=== PATIENT | female | born 1970 | race Caucasian/White ===

== ENCOUNTER 2022-01-15 11:50 | Outpatient (CLI) | payer MEDICARE, SELFPAY ==
--- NOTE | 2022-01-15 12:00 | USCV_ITS ---
Blanca Benjamin Age: 51 Gender: F : 1970 Exam Date: 01/15/2022 12:25 Ordering Phys: Yoanna Maxwell NP Technologist: Martha Hernandez Exam Location[place] [facility] [place] [facility] [place] Indication: RLE swelling HISTORY: rLE swelling. PROCEDURES: Venous duplex imaging was performed in only the right lower extremity. The following venous structures were evaluated: common femoral vein, profunda vein, proximal portion of the greater saphenous vein, superficial femoral vein, and the popliteal vein. In addition, the posterior tibial and peroneal trunk were evaluated. FINDINGS: All veins examined appear free of thrombus. No filling defects on color Doppler flow analysis. Vein flow and caliber vary with respiration. Increase in venous flow with augmentation. All veins appear compressible.. CONCLUSIONS No evidence of right lower extremity DVT. Ernesto Avilez MD (Electronically Signed) Final Date: 15 January 2022 16:53 S
== END 2022-01-15 11:51 | disposition home or self-care (01) ==
PROVIDERS: Family Provider Emergency Medicine; Visit Provider Nurse Practitioner Family
DX: R60.0 Localized edema (principal); M79.661 Pain in right lower leg
CPT/HCPCS: 93971

== ENCOUNTER → 2022-01-24 10:10 | Outpatient (BNVA) | payer MEDICARE, SELFPAY | PROVIDERS: Family Provider Emergency Medicine; Visit Provider Nurse Practitioner Family | DX: E78.5 Hyperlipidemia, unspecified (principal); I10 Essential (primary) hypertension; Z51.81 Encounter for therapeutic drug level monitoring | CPT/HCPCS: 80053; 80061; 80175; 84439; 84443 ==

== ENCOUNTER → 2022-02-01 10:18 | Outpatient (BNVA) | payer MEDICARE, SELFPAY | PROVIDERS: Family Provider Emergency Medicine; PCP Nurse Practitioner Family; Visit Provider Thoracic Surgery (Cardiothoracic Vascular Surgery) | DX: R60.0 Localized edema (principal); I78.1 Nevus, non-neoplastic; M79.661 Pain in right lower leg | CPT/HCPCS: 99202 ==

== ENCOUNTER 2022-02-07 13:49 | Outpatient (CLI) | payer MEDICARE, SELFPAY ==
--- NOTE | 2022-02-07 14:57 | MM_ITS ---
WS: [id number] BILATERAL 3D TOMOSYNTHESIS DIGITAL SCREENING MAMMOGRAPHY WITH CAD CLINICAL INFORMATION: SCREENING HISTORY: Screening mammogram. No current complaints. COMPARISON: June 15, 2020 TECHNIQUE: Bilateral CC and MLO views. FINDINGS: Scattered fibroglandular densities bilaterally. New ovoid focal nodular asymmetric density measuring 1.8 x 1.4 cm central RIGHT breast near the 1:00 position middle depth. Recommend further evaluation w ith ultrasound from the 12 to 3:00 position. Additional asymmetric density upper outer RIGHT breast with additional ovoid density outer LEFT breas t are unchanged. Smaller ovoid nodular density anterior RIGHT breast is unchanged. No other suspiciou s findings. MM/[place] [id number] IMPRESSION: BI-RADS: 0-Incomplete: Need additional imaging evaluation FOLLOW UP: Need Additional Imaging New ovoid focal central RIGHT breast near the 1:00 position middle depth. Recom mend further evaluation with ultrasound from the 12 to 3:00 position.
== END 2022-02-07 13:50 | disposition home or self-care (01) ==
LOC: RAD 13:49
PROVIDERS: PCP Nurse Practitioner Family; Visit Provider Nurse Practitioner Family
DX: Z12.31 Encounter for screening mammogram for malignant neoplasm of breast (principal); J02.9 Acute pharyngitis, unspecified
CPT/HCPCS: 77063; 77067; 87426

== ENCOUNTER 2022-02-13 09:05 | Outpatient (CLI) | payer MEDICARE, SELFPAY ==
--- NOTE | 2022-02-13 09:30 | USCV_ITS ---
Blanca Benjamin Age: 51 Gender: F : 1970 Exam Date: 02/13/2022 09:32 Ordering Phys: Jann More MD (Andy) ([email or web address]) Technologist: Braulio Rocha Exam Location: [facility] – [place] Indication: HISTORY: PROCEDURES: Bilateral duplex Venous Insufficiency study of the Deep and Superficial systems was carried out according to normal protocol with the patient in supine positon for deep system and dependent position for the superficial system. FINDINGS: All deep veins demonstrated compressibility without evidence of intraluminal thrombus or increased echogenicity. Spectral analysis of Doppler signals demonstrates normal response to compression maneuvers indicating patency without obstruction. Reflux determinations were made with the patient in the dependent position, the weight being on the contralateral leg. Vein measurements and reflux times are listed below were applicable. No notable reflux was seen at this time. The veins were found to be easily compressible with spontaneous blood flow. Non pulsatile flow pattern. CONCLUSIONS No evidence of DVT in the above-mentioned identifiable veins. Mildly dilated superficial veins on the right side. Normal caliber veins on the left side. No significant venous reflux either in the superficial or in the deep veins of the lower extremities Dr Michelle Carmona MD [facility] (Electronically Signed) Final Date: 17 February 2022 15:17 S
== END 2022-02-13 09:06 | disposition home or self-care (01) ==
PROVIDERS: PCP Nurse Practitioner Family; Visit Provider Thoracic Surgery (Cardiothoracic Vascular Surgery)
DX: I78.1 Nevus, non-neoplastic (principal); M79.661 Pain in right lower leg; R60.0 Localized edema
CPT/HCPCS: 93970

== ENCOUNTER 2022-03-21 14:40 | Outpatient (CLI) | payer MEDICARE, SELFPAY ==
--- NOTE | 2022-03-21 15:01 | US_ITS ---
WS: [id number] ULTRASOUND BREAST RIGHT TECHNIQUE: Ultrasound right breast focused area of concern. CLINICAL INFORMATION: N63.0 - Unspecified lump in unspecified breast COMPARISON: February 07, 2022 FINDINGS: Ultrasound RIGHT breast 12 to 3:00 position. Hypoechoic lobulated lesion at the 12:00 position measur ing 8.2 x 14 x 6 mm. This appears to represent a cluster of microcysts with some internal debris. Sma ll amount of through-transmission. Recommend 6 month follow-up to confirm stability. No other suspic ious findings. US/US breast RT limited* [id number] IMPRESSION: BI-RADS 3 probably benign Follow up: Recommend 6 month follow-up RIGHT breast diagnostic mammography and ultrasound to confirm stability
== END 2022-03-21 14:41 | disposition home or self-care (01) ==
PROVIDERS: PCP Nurse Practitioner Family; Visit Provider Nurse Practitioner Family
DX: N63.15 Unspecified lump in the right breast, overlapping quadrants (principal)
CPT/HCPCS: 76642

== ENCOUNTER → 2022-04-27 14:55 | Outpatient (BNVA) | payer MEDICARE, SELFPAY | PROVIDERS: PCP Nurse Practitioner Family; Visit Provider Nurse Practitioner Family | DX: R30.0 Dysuria (principal); G31.84 Mild cognitive impairment of uncertain or unknown etiology; F31.62 Bipolar disorder, current episode mixed, moderate; Z68.39 Body mass index [BMI] 39.0-39.9, adult | CPT/HCPCS: 80053; 81000; 82306; 82607; 84443; 85025 ==

== ENCOUNTER 2022-05-10 14:56 | Outpatient (CLI) | payer MEDICARE, SELFPAY ==
--- NOTE | 2022-05-10 15:30 | CT_ITS ---
WS: [id number] CT HEAD TECHNIQUE: Noncontrast CT of the head obtained from the skullbase to the vertex. CLINICAL INFORMATION: G31.84 - Mild cognitive impairment of uncertain or unknow... COMPARISON: None. DLP: 1114.[address] scans at [place] use at least one of these dose optimization techniques: automated e xposure control; mA and/or kV adjustment per patient size (includes targeted exams where dose is matc hed to clinical indication); or iterative reconstruction. FINDINGS: No evidence of intracranial hemorrhage or mass effect. Ventricular system and basal cisterns are figueroa nt. Mild small vessel changes with mild parenchymal volume loss. Tiny chronic lacunar infarct RIGHT c audate. No extra-axial fluid collections. No evidence of mass or mass effect. Normal posterior nasoph arynx. Paranasal sinuses and mastoid air cells are well aerated. .Normal visualized soft tissues. CT/CT head wo con* [id number] IMPRESSION: 1. No evidence of intracranial hemorrhage or mass effect. 2. Mild small vessel changes. Mild parenchymal volume loss. 3. Tiny chronic lacunar infarct RIGHT caudate. 4. No acute intracranial findings.
== END 2022-05-10 14:57 | disposition home or self-care (01) ==
PROVIDERS: PCP Nurse Practitioner Family; Visit Provider Nurse Practitioner Family
DX: R41.0 Disorientation, unspecified (principal); I63.81 Other cerebral infarction due to occlusion or stenosis of small artery
CPT/HCPCS: 70450

== ENCOUNTER → 2022-07-11 09:46 | Outpatient (BNVA) | payer MEDICARE, SELFPAY | PROVIDERS: PCP Nurse Practitioner Family; Visit Provider Nurse Practitioner Family | DX: R05.9 Cough, unspecified (principal); J32.9 Chronic sinusitis, unspecified; B96.89 Other specified bacterial agents as the cause of diseases classified elsewhere | CPT/HCPCS: 87400; 87426 ==

== ENCOUNTER → 2022-07-25 09:43 | Outpatient (BNVA) | payer MEDICARE, SELFPAY | PROVIDERS: PCP Nurse Practitioner Family; Visit Provider Nurse Practitioner Family | DX: I10 Essential (primary) hypertension (principal); E78.5 Hyperlipidemia, unspecified; F41.9 Anxiety disorder, unspecified; Z68.38 Body mass index [BMI] 38.0-38.9, adult | CPT/HCPCS: 80053; 80061 ==

== ENCOUNTER 2022-09-20 08:50 | Outpatient (CLI) | payer MEDICARE, SELFPAY ==
--- NOTE | 2022-09-20 08:58 | MM_ITS ---
WS: [id number] RIGHT 3D TOMOSYNTHESIS DIGITAL MAMMOGRAPHY WITH CAD CLINICAL INFORMATION: 6MFU COMPARISON: February 07, 2022 TECHNIQUE: 3 views of the right breast were obtained. FINDINGS: Scattered fibroglandular densities of the right breast. Again seen is the focal ovoid nodular density central RIGHT breast at the 1:00 position middle depth. This is unchanged in size compared to previo us measuring approximately 1.8 cm. Ultrasound described below. Additional asymmetric density subareolar RIGHT breast and ovoid nodular density anterior RIGHT breast are unchanged. ULTRASOUND BREAST RIGHT TECHNIQUE: Ultrasound right breast focused area of concern. CLINICAL INFORMATION: 6MFU COMPARISON: 03/21/22 FINDINGS: Ultrasound RIGHT breast the 12:00 position 2 cm from the nipple. Again seen is the cluster of microcy sts today measuring 1.8 x 0.8 x 1.0 CM. This is slightly increased in size compared to previous proba dimple benign. Recommend additional ultrasound evaluation at the time of annual screening 6 months. MM/[place] [id number] IMPRESSION: BI-RADS: 3-Probably Benign FOLLOW UP: 6 Month Follow-up Recommend additional ultrasound evaluation RIGHT breast at the time of annual s creening 6 months.
== END 2022-09-20 08:51 | disposition home or self-care (01) ==
LOC: RAD 08:53
PROVIDERS: PCP Nurse Practitioner Family; Visit Provider Nurse Practitioner Family
DX: R92.8 Other abnormal and inconclusive findings on diagnostic imaging of breast (principal); N60.01 Solitary cyst of right breast
CPT/HCPCS: 76642; 77061; G0279

== ENCOUNTER → 2022-12-20 13:36 | Outpatient (BNVA) | payer MEDICARE, SELFPAY | PROVIDERS: PCP Nurse Practitioner Family; Visit Provider Nurse Practitioner Family | DX: Z76.89 Persons encountering health services in other specified circumstances (principal); R21 Rash and other nonspecific skin eruption | CPT/HCPCS: 88304 ==

== ENCOUNTER → 2022-12-31 17:07 | Outpatient (BNVA) | payer MEDICARE, SELFPAY | PROVIDERS: PCP Nurse Practitioner Family; Visit Provider Family Medicine | DX: M31.9 Necrotizing vasculopathy, unspecified (principal); Z48.02 Encounter for removal of sutures | CPT/HCPCS: 80053; 86160; 86162; 86235; 86255; 86376; 86618; 86666; 86757 ==

== ENCOUNTER → 2023-01-02 09:35 | Outpatient (BNVA) | payer MEDICARE, SELFPAY | PROVIDERS: PCP Nurse Practitioner Family; Visit Provider Nurse Practitioner Women's Health | DX: N91.2 Amenorrhea, unspecified (principal); Z12.4 Encounter for screening for malignant neoplasm of cervix | CPT/HCPCS: 82670; 83001; 87624 ==

== ENCOUNTER → 2023-01-10 11:00 | Outpatient (BNVA) | payer MEDICARE, SELFPAY | PROVIDERS: PCP Nurse Practitioner Family; Visit Provider Nurse Practitioner Women's Health | DX: N91.2 Amenorrhea, unspecified (principal) | CPT/HCPCS: 76830 ==

== ENCOUNTER → 2023-02-04 09:06 | Outpatient (BNVA) | payer MEDICARE, SELFPAY | PROVIDERS: PCP Nurse Practitioner Family; Visit Provider Nurse Practitioner Women's Health | DX: N91.0 Primary amenorrhea (principal); N91.2 Amenorrhea, unspecified; F31.62 Bipolar disorder, current episode mixed, moderate; Z79.899 Other long term (current) drug therapy | CPT/HCPCS: 82670; 83001; 84146; 84439; 84443 ==

== ENCOUNTER 2023-02-07 11:17 | Emergency (ER) | payer MEDICARE, SELFPAY ==
--- NOTE | 2023-02-07 11:20 | XR_ITS ---
WS: [id number] Exam: XR shoulder RT min 2V* [id number] Date/Time of Exam: 02/07/2023 11:22 AM Reason For Exam: injury No fracture or dislocation noted. Mild DJD at the AC joint. Normal soft tissues. IMPRESSION: 1. Mild AC joint DJD. No other significant finding.
[2023-02-07 12:09] VITALS: BP 145/85; PULSE 62; RESP 17; TEMP 36.9; O2SAT 99
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
[2023-02-07 13:13] VITALS: BP 152/91; PULSE 62; O2SAT 97
== END 2023-02-07 13:18 | disposition home or self-care (01) ==
PROVIDERS: Emergency Provider Physician Assistant; PCP Nurse Practitioner Family
DX: S49.91XA Unspecified injury of right shoulder and upper arm, initial encounter (principal); I10 Essential (primary) hypertension; E78.5 Hyperlipidemia, unspecified; V89.2XXA Person injured in unspecified motor-vehicle accident, traffic, initial encounter
CPT/HCPCS: 73030; 99283

== ENCOUNTER → 2023-03-21 15:31 | Outpatient (BNVA) | payer MEDICARE, SELFPAY | PROVIDERS: PCP Nurse Practitioner Family; Visit Provider Nurse Practitioner Family | DX: L85.3 Xerosis cutis (principal); B35.4 Tinea corporis; D22.62 Melanocytic nevi of left upper limb, including shoulder; L81.4 Other melanin hyperpigmentation | CPT/HCPCS: 99213 ==

== ENCOUNTER → 2023-04-02 09:27 | Outpatient (BNVA) | payer MEDICARE, SELFPAY | PROVIDERS: PCP Nurse Practitioner Family; Visit Provider Nurse Practitioner Family | DX: B67 Echinococcosis (principal) | CPT/HCPCS: 87177; 87209 ==

== ENCOUNTER 2023-06-06 09:05 | Outpatient (CLI) | payer MEDICARE, SELFPAY ==
--- NOTE | 2023-06-06 09:14 | MM_ITS ---
WS: [id number] BILATERAL 3D TOMOSYNTHESIS DIGITAL DIAGNOSTIC MAMMOGRAPHY WITH CAD CLINICAL INFORMATION: N63.0 - Unspecified lump in unspecified breast HISTORY: 6-month follow-up COMPARISON: 02/07/2022 TECHNIQUE: Bilateral CC, MLO, and ML views. FINDINGS: Scattered fibroglandular densities bilaterally. Parenchymal pattern is similar to previous. Stable fo hubert ovoid nodular density central RIGHT breast at the 1 o'clock position middle depth. This is stable compared to previous. Ultrasound is pending. LEFT breast is unchanged. ULTRASOUND BREAST RIGHT TECHNIQUE: Ultrasound right breast focused area of concern. CLINICAL INFORMATION: N63.0 - Unspecified lump in unspecified breast COMPARISON: 09/20/2022 and 03/21/2022 FINDINGS: Ultrasound RIGHT breast area of concern 12 o'clock position 2 cm from the nipple. Again seen is the c luster of microcysts measuring 0.8 x 1.0 x 0.4 cm decreased in size compared to previous. This has a benign appearance and recommend return to annual screening mammography. IMPRESSION: MM/[place] [id number] BI-RADS: 2-Benign FOLLOW UP: 1 Year Follow-up Recommend return to annual screening mammography.
--- NOTE | 2023-06-06 10:00 | US_ITS ---
WS: [id number] BILATERAL 3D TOMOSYNTHESIS DIGITAL DIAGNOSTIC MAMMOGRAPHY WITH CAD CLINICAL INFORMATION: N63.0 - Unspecified lump in unspecified breast HISTORY: 6-month follow-up COMPARISON: 02/07/2022 TECHNIQUE: Bilateral CC, MLO, and ML views. FINDINGS: Scattered fibroglandular densities bilaterally. Parenchymal pattern is similar to previous. Stable fo hubert ovoid nodular density central RIGHT breast at the 1 o'clock position middle depth. This is stable compared to previous. Ultrasound is pending. LEFT breast is unchanged. ULTRASOUND BREAST RIGHT TECHNIQUE: Ultrasound right breast focused area of concern. CLINICAL INFORMATION: N63.0 - Unspecified lump in unspecified breast COMPARISON: 09/20/2022 and 03/21/2022 FINDINGS: Ultrasound RIGHT breast area of concern 12 o'clock position 2 cm from the nipple. Again seen is the c luster of microcysts measuring 0.8 x 1.0 x 0.4 cm decreased in size compared to previous. This has a benign appearance and recommend return to annual screening mammography. IMPRESSION: US/US breast RT limited* [id number] BI-RADS: 2-Benign FOLLOW UP: 1 Year Follow-up Recommend return to annual screening mammography.
== END 2023-06-06 09:06 | disposition home or self-care (01) ==
LOC: RAD 09:07
PROVIDERS: PCP Nurse Practitioner Family; Visit Provider Nurse Practitioner Family
DX: N63.0 Unspecified lump in unspecified breast (principal); N60.01 Solitary cyst of right breast
CPT/HCPCS: 76642; 77062; G0279

== ENCOUNTER 2023-07-23 12:06 | Day surgery (SDC) | payer MEDICARE, SELFPAY ==
[2023-07-18 10:40] LABS: Add Urine Microscopic? NO; Charge for UA Resulting for Rev
[2023-07-18 10:42] LABS: Basophils # 0.1 10^3/uL (0.0-0.1); Basophils % 0.9 %; Eosinophils # 0.2 10^3/uL (0.0-0.8); Eosinophils % 3.4 %; Hematocrit 41.4 % (36-47); Lymphocytes # 2.3 10^3/uL (0.8-4.8); Lymphocytes % 34.9 %; Mean Corpuscular HGB Conc 32.9 g/dL (30-55); Mean Corpuscular Hemoglobin 27.9 pg (27-33); Mean Platelet Volume 9.9 fL (7.4-10.4); Monocytes # 0.5 10^3/uL (0.2-0.9); Monocytes % 8.1 %; Neutrophils # 3.43 10^3/uL (1.8-7.7); Neutrophils % 52.2 %; Nucleated Red Blood Cells % 0 %; Platelet Count 290 10^3/cmm (157-399); Red Blood Count 4.87 10^6/uL (3.85-5.65); White Blood Count 6.56 10^3/uL (3.29-11.43)
--- NOTE | 2023-07-18 10:46 | P.ANESASSM_ITS ---
Pre-Anesthetic Assessment Height/Weight: Height 1.68 m Operation Date: 07/23/23 09:00 Proposed Procedures p Hyteroscopy, dilation and curettage with Myosure [id number],74403,R93.89(Not Applicable) - Brendan Langston MD s Dilation And Curettage (D&C)(Not Applicable) - Brendan Langston MD Familial anesthetic complications: PONV Social No alcohol and No tobacco Exam alert, oriented x 3, clear to auscultation bilaterally and regular rate & rhythm Airway Mallampati: Class I Dentition: full Pulmonary Asthma (infrequent rescue inhaler use) CV/HEM Hypertension None reported Hepatic None reported GI Hiatal Hernia increased acid reflux over the past month Musc/skel Lower Back Pain Neuropsych None reported Anesthetic Plan ASA status: 2 Anesthesia: General Risk of > 500 ml blood loss (7ml/kg in children): No Medications/Allergies Home Medications Medication Instructions Recorded Confirmed Last Taken Type albuterol sulfate 90 mcg/actuation 2 puff inhalation Q6H PRN 02/05/22 07/18/23 2 Weeks Ago Rx aerosol inhaler shortness of breath or wheezing ~07/04/23 #8.5 grams fexofenadine 180 mg tablet 180 mg PO DAILY 07/31/22 07/18/23 1 Day Ago History ~07/17/23 fluticasone propionate 50 1 spray intranasal Q12H PRN 07/31/22 07/18/23 Unknown History mcg/actuation nasal Allergy Symptoms spray,suspension (Allergy Relief (fluticasone)) calcium carbonate 500 mg-vitamin 1 tab PO DAILY 12/31/22 07/18/23 1 Day Ago History D3 10 mcg (400 unit) tablet ~07/17/23 (Calcium 500 With D) lorazepam 0.5 mg tablet (Ativan) 0.5 mg PO TID PRN anxiety #90 tabs 03/28/23 07/18/23 1 Day Ago Rx ~07/17/23 potassium gluconate 595 mg (99 mg) 595 mg PO DAILY 03/28/23 07/18/23 1 Day Ago History tablet ~07/17/23 rizatriptan 10 mg tablet See Rx Instructions .Route 04/29/23 07/18/23 2 Days Ago Rx .COMPLEX #20 tabs ~07/16/23 metoprolol succinate 50 mg 50 mg PO DAILY #90 tabs 12/20/23 02/22/24 1 Day Ago Rx tablet,extended release 24 hr ~07/17/23 escitalopram oxalate 20 mg tablet 20 mg PO DAILY #90 tabs 05/29/23 07/18/23 1 Day Ago Rx (Lexapro) ~07/17/23 lamotrigine 200 mg tablet 200 mg PO BID 30 days #60 tabs 05/29/23 07/18/23 1 Day Ago Rx ~07/17/23 lumateperone 42 mg capsule 42 mg PO DAILY #30 caps 05/29/23 07/18/23 1 Day Ago Rx (Caplyta) ~07/17/23 bkckxud-rxpavsgkxszpa-ylyfwwbe 250 2 tab PO Q6H PRN Migraine Headache 07/18/23 07/18/23 1 Day Ago History mg-250 mg-65 mg tablet (Excedrin ~07/17/23 Migraine) famotidine 10 mg tablet 10 mg PO BID PRN Acid Reflux 07/18/23 07/18/23 07/18/23 History ibuprofen 200 mg capsule 400 mg PO Q6H PRN PAIN MOD 07/18/23 07/18/23 Unknown History Allergies Allergy/AdvReac Type Severity Reaction Status Date / Time No Known Allergies Allergy Verified 07/18/23 09:59 PFSH Anesthesia Medical History No pertinent past medical history neghx: dm,thyroid,dvt/pe PCP: [facility] Office Benign essential HTN Anxiety Bipolar mixed affective disorder, moderate PTSD (post-traumatic stress disorder) Dyslipidemia Migraines Hiatal hernia Asthma Psychiatric care Surgical History History of lumbar surgery L4-L5 fusion History of endometrial ablation performed in her 30's [address] [facility] in [place] for AUB. History of shoulder surgery left History of cholecystectomy Family History Other Chronic kidney disease (CKD) Hyperlipidemia Hypertension Psychiatric illness Denies family history of Colon cancer Ovarian cancer Prostate cancer Diabetes CAD (coronary artery disease) Clotting disorder Dementia Heart disease Breast cancer Suicide Anesthesia complication Bleeding disorder Family history of premature coronary artery disease Lung disease Uterine cancer Thyroid disease Stroke Social History Smoking and tobacco/nicotine status: never used tobacco/nicotine Alcohol intake: never Data Anesthesia 07/18/23 10:35 07/18/23 10:35 Short CBC 07/18/23 Range/Units 10:35 WBC 6.56 (3.29-11.43) 10^3/uL Hgb 13.60 (11.27-16.99) g/dL Hct 41.4 (36-47) % MCV 85.0 (85-98) fl Plt Count 290 (157-399) 10^3/cmm Neut % (Auto) 52.2 % Neut # (Auto) 3.43 (1.8-7.7) 10^3/uL Cardiac Studies: 2 No Data to Display
[2023-07-18 10:51] LABS: Urine Appearance Clear (CLEAR); Urine Color Yellow (Yellow); pH Urine 6 (5-7)
[2023-07-18 10:52] LABS: Bilirubin Urine 1+ (Negative); Blood Urine Neg (Negative); Glucose Urine UA Norm (Normal); Ketones Urine Negative (Negative); Leukocyte Esterase Urine Negative (Negative); Nitrate Urine Negative (Negative); Protein Urine Neg (Negative); Urobilinogen Urine 1 mg/dL (Negative)
[2023-07-18 11:12] LABS: Alanine Aminotransferase 18 U/L (0-33); Albumin Level 4.1 g/dL (3.5-5.2); Alkaline Phosphatase 151 U/L (35-105); Anion Gap 15.4 (5-19); Aspartate Amino Transferase 18 U/L (0-32); Blood Urea Nitrogen 13 mg/dL (6-20); Calcium 9.8 mg/dL (8.5-10.5); Carbon Dioxide 26 mmol/L (22-29); Chloride 104 mmol/L (98-107); Globulin 2.3 g/dL (1.3-4.6); Glomerular Filtration Rate 87.2 mL/min (90-130); Glucose 78 mg/dL (65-115); Osmolality Calculated 291 mOsm/kg (285-295); Potassium 4.4 mmol/L (3.5-5.1); Sodium 141 mmol/L (136-145); Total Bilirubin 0.2 mg/dL (0.15-1.2); Total Protein 6.4 g/dL (6.6-8.7)
[2023-07-23] VITALS (9 sets, daily range): BP systolic 130–151; BP diastolic 64–81; PULSE 62–72; RESP 16–17; TEMP 36.1–36.7; O2SAT 92–99
--- NOTE | 2023-07-23 12:32 | P.ANESUD_ITS ---
Pre-Anesthetic Update Pre-Anesthetic Assessment: Date of Surgery/Procedure: 07/23/23 Preop Paulina gnosis: Thickened endometrium, Proposed Procedure: Operation Date: 07/23/23 14:10 Proposed Procedures p Hyteroscopy, dilation and curettage with Myosure 04227,27247,R93.89(Not Applicable) - Brendan Langston MD s Dilation And Curettage (D&C)(Not Applicable) - Brendan Langston MD Any changes to Pre-Anesthetic Assessment?: No Last Intake: Intake Last Liquid Date 07/22/23 Last Liquid Time 20:00 Last Solid Date 07/22/23 Last Solid Time 20:00 Vitals: Oxygen Delivery Me thod Room Air 07/23/23 12:25 Exam: Pre-Anes Outpt Exam: alert and oriented x 3 Cardiac Studies: No Data to Display
[2023-07-23] MEDS: sodium chloride 0.9% 1,000 ML 30 ML IV (12:40)
[2023-07-23] MEDS: midazolam 1 mg/mL INJ 2 mL 2 MG IVP (12:48)
--- NOTE | 2023-07-23 15:23 | W.PM.OPSUD ---
Surgery/Procedure H&P Update DATE OF PROCEDURE: July 23, 2023 DATE H&P PERFORMED: 07/17/23 H&P UPDATE INFORMATION: I have reviewed H&P completed within last 30 days, I have examined patient prior to procedure and No changes to prior documentation PREOP DIAGNOSIS: Thickened endometrium, PLANNED PROCEDURE: Operation Date: 07/23/23 14:10 Proposed Procedures p Hyteroscopy, dilation and curettage with Myosure [id number],89213,R93.89(Not Applicable) - Brendan Langston MD s Dilation And Curettage (D&C)(Not Applicable) - Brendan Langston MD
[2023-07-23] MEDS: ceFAZolin 2,000 MG in sodium chloride 0.9% (plus) 50 ML 100 MG IV (15:24)
--- NOTE | 2023-07-23 16:03 | PM.OP ---
Operative Report Date of procedure: July 23, 2023 Pre-op diagnosis: Thickened endometrium Post-op diagnosis: same Post-op diagnosis: Atrophic endometrium Procedure done: Hysteroscopy with dilation and curettage via MyoSure Specimens removed/disposition: Endometrial curettings Surgeon: Brendan Langston MD Estimated blood loss (mL): 10 Findings: Atrophic endometrium Intrauterine adhesions Condition: stable Disposition: PACU Procedure: After informed consent, the risks included but were not limited to bleeding, infection, injury to internal organs. The patient was counseled on a possible laparotomy and on the potential need for hysterectomy. The patient expressed understanding of the risks involved, all questions were answered, and the patient consented to the procedure. The patient was taken to the operating room where general anesthesia was administered. She was placed in the dorsal lithotomy position and prepped and draped in sterile fashion. A time out procedure was performed. The patient was examined under anesthesia and found to have a normal uterus with normal adnexa. A sterile weight speculum was placed in the vagina. The uterus was then gently sounded to 7 cm, and the cervix was dilated. The 0 degrees MyoSure hysteroscope was advanced gently to the uterine fundus while visualizing the monitor. Survey of the uterine cavity showed: Pedicle of the pedunculated myoma on the right lateral wall, the fundus shows atrophic endometrium; left ostium was visualized, and lateral wall with atrophic endometrium; right ostium visualized, and lateral wall with atrophic endometrium; anterior and posterior arguelles are with atrophic endometrium; endocervical canal is normal. The MyoSure device was advanced and the direct visualization the endometrium was morcellated without complication. At the end of morcellation the fluid deficit was 300 mL and was estimated at approximately 200 mL were on the floor. There was minimal bleeding noted and the tenaculum removed with goad hemostasis noted. The patient tolerated the procedure well. The patient was taken to the recovery area in stable condition.
--- NOTE | 2023-07-24 06:20 | ANE.PACU2 ---
Inpatient post-anesthesia follow up: Airway intact: Yes Vital signs: Temperature 98 F Pulse Rate 62 Respiratory Rate 17 Blood Pressure 133/81 Pulse Oximetry 96 Oxygen Delivery Me thod Room Air Oxygen Flow Rate 6 Fraction of Inspir ed Oxygen Hydration adequate: Yes Nausea and vomiting: No Pain level: 2 Mental status: Baseline
== END 2023-07-23 17:27 | disposition home or self-care (01) ==
PROVIDERS: PCP Nurse Practitioner Family; Visit Provider Obstetrics & Gynecology
PROC: 0UDB8ZZ Extraction of Endometrium, Via Natural or Artificial Opening Endoscopic (ICD-10-PCS; CPT 58558; principal; 2023-07-23 14:10)
PROC: (CPT 58120; 2023-07-23 14:10)
DX: R93.89 Abnormal findings on diagnostic imaging of other specified body structures (principal); I10 Essential (primary) hypertension; E78.5 Hyperlipidemia, unspecified
CPT/HCPCS: 58558; 36415; 80053; 81003; 85025; 86850; 86900; 88305; J0330; J0690; J2250; J2704; J3010; J3490; J7030

== ENCOUNTER → 2023-08-30 09:40 | Outpatient (BNVA) | payer MEDICARE, SELFPAY | PROVIDERS: PCP Nurse Practitioner Family; Visit Provider Nurse Practitioner Family | DX: J45.909 Unspecified asthma, uncomplicated (principal); I10 Essential (primary) hypertension; Z98.890 Other specified postprocedural states; K21.9 Gastro-esophageal reflux disease without esophagitis | CPT/HCPCS: 80053; 80061 ==

== ENCOUNTER 2023-10-22 09:36 | Outpatient (CLI) | payer SELFPAY ==
--- NOTE | 2023-10-22 11:24 | XR_ITS ---
WS: [id number] Exam: XR cervical spine 3V* [id number] Date/Time of Exam: 10/22/2023 11:24 AM Reason For Exam: M54.2 - Cervicalgia No acute fracture or dislocation. There is straightening and reversal of the normal cervical C curve. The odontoid is intact. Paraspinal soft tissues appear normal. XR/XR cervical spine 3V* [id number] IMPRESSION: 1. No fracture or malalignment. 2. Straightening and slight reversal of the normal cervical C curve.
== END 2023-10-22 09:37 | disposition home or self-care (01) ==
LOC: RAD 09:39
PROVIDERS: PCP Nurse Practitioner Family; Visit Provider Nurse Practitioner Family
DX: M54.2 Cervicalgia (principal); G89.29 Other chronic pain; M53.80 Other specified dorsopathies, site unspecified
CPT/HCPCS: 72040

== ENCOUNTER 2024-06-15 09:07 | Outpatient (CLI) | payer MEDICARE, SELFPAY ==
--- NOTE | 2024-06-15 09:17 | XRR_ITS ---
PROCEDURE INFORMATION: Exam: XR Lumbosacral Spine Exam date and time: 06/15/2024 9:27 AM Age: 53 years old Clinical indication: Low back pain; Prior surgery; Surgery date: 6+ months; Surgery type: --lumbar fusion; Additional info: S39.012a - strain of muscle, fascia and tendon of lower b. . . TECHNIQUE: Imaging protocol: Radiologic exam of the lumbosacral spine. Views: 2 or 3 views. COMPARISON: No relevant prior studies available. FINDINGS: Bones/joints: There is normal anatomic alignment of the lumbosacral spine. No evidence of a fracture or destructive bone lesion. There is a posterior bipedicular fusion at L4-L5. There is moderate to severe degenerative disc space narrowing at L5-S1. There are degenerative facet hypertrophic changes at L5-S1. The sacrum is intact. Soft tissues: Unremarkable. Organs: Cholecystectomy. XR/XR lumbar spine 2-3V* [id number] IMPRESSION: 1. No radiographic evidence of an acute lumbosacral abnormality with stable posterior L4-L5 fusion. 2. Moderate to severe degenerative disc disease at L5-S1.
[2024-06-15 10:09] LABS: Folate Level 16.1 ng/mL (4.8-37.3)
[2024-06-15 10:11] LABS: 25 Hydroxy Vitamin D 30 ng/mL (30-100); Alanine Aminotransferase 20 U/L (0-33); Albumin Level 4.5 g/dL (3.5-5.2); Alkaline Phosphatase 152 U/L (35-105); Anion Gap 16.8 (5-19); Aspartate Amino Transferase 15 U/L (0-32); Blood Urea Nitrogen 19 mg/dL (6-20); Calcium 10.2 mg/dL (8.5-10.5); Carbon Dioxide 28 mmol/L (22-29); Chloride 99 mmol/L (98-107); Chol HDL Ratio 5.05 mg/dL (0.0-4.40); Cholesterol 217 mg/dL (0-200); Globulin 3.2 g/dL (1.3-4.6); Glomerular Filtration Rate 74.7 mL/min (90-130); Glucose 121 mg/dL (65-115); HDL Cholesterol 43 mg/dL (60-100); LDL Cholesterol Calculated 127 mg/dL (50-129); LDL HDL Ratio 2.95 RATIO (0.00-3.22); Osmolality Calculated 294 mOsm/kg (285-295); Potassium 3.8 mmol/L (3.5-5.1); Sodium 140 mmol/L (136-145); Thyroid Stimulating Hormone 1.24 uIU/mL (0.27-4.20); Total Bilirubin 0.2 mg/dL (0.15-1.2); Total Protein 7.7 g/dL (6.6-8.7); Triglycerides 234 mg/dL (0-150); Vitamin B12 749 pg/mL (232-1245)
== END 2024-06-15 09:08 | disposition home or self-care (01) ==
LOC: RAD 09:13
PROVIDERS: PCP Family Medicine; Visit Provider Family Medicine
DX: M51.379 Other intervertebral disc degeneration, lumbosacral region without mention of lumbar back pain or lower extremity pain (principal); M47.897 Other spondylosis, lumbosacral region; S39.012A Strain of muscle, fascia and tendon of lower back, initial encounter; Z76.89 Persons encountering health services in other specified circumstances; I10 Essential (primary) hypertension; E78.5 Hyperlipidemia, unspecified; R20.0 Anesthesia of skin; R79.89 Other specified abnormal findings of blood chemistry; E55.9 Vitamin D deficiency, unspecified; F31.62 Bipolar disorder, current episode mixed, moderate; Z98.1 Arthrodesis status; Z90.49 Acquired absence of other specified parts of digestive tract
CPT/HCPCS: 36415; 72100; 80053; 80061; 82306; 82607; 82746; 84443

== ENCOUNTER 2024-07-17 09:50 | Outpatient (CLI) | payer MEDICARE, SELFPAY ==
--- NOTE | 2024-07-17 09:54 | MM_ITS ---
WS: [id number] BILATERAL SCREENING DIGITAL TOMOSYNTHESIS MAMMOGRAM WITH CAD HISTORY: SCREENING COMPARISON: 06/15/2020, 02/07/2022, 09/20/2022, 06/06/2023 Bilateral CC and MLO views with tomosynthesis and synthetic mammography submitted. Computer aided detection analyzed. Breast composition: There are scattered areas of fibroglandular density. No suspicious masses, microcalcifications or architectural distortion. Patient has known bilateral breast masses which have been previously described. Mass in the inferior lateral RIGHT breast at a middle depth measures 1.0 x 1.6 x 1.2 cm and has been previously described and visualized by ultrasound. There is an additional mass in the central LEFT breast towards the upper outer quadrant measuring 0.7 x 1.2 x 1.0 cm. No new mass. There are a few benign scattered calcifications. MM/MM scr tomosynthesis [id number] IMPRESSION: BI-RADS: 2 - Benign. FOLLOW UP: 1 Year Follow-up
== END 2024-07-17 09:51 | disposition home or self-care (01) ==
PROVIDERS: PCP Family Medicine; Visit Provider Family Medicine
DX: Z12.31 Encounter for screening mammogram for malignant neoplasm of breast (principal); R92.323 Mammographic fibroglandular density, bilateral breasts; N63.10 Unspecified lump in the right breast, unspecified quadrant; N63.21 Unspecified lump in the left breast, upper outer quadrant; R92.1 Mammographic calcification found on diagnostic imaging of breast
CPT/HCPCS: 77063; 77067

== ENCOUNTER → 2024-07-29 10:46 | Outpatient (BNVA) | payer MEDICARE, SELFPAY | PROVIDERS: PCP Family Medicine; Visit Provider Nurse Practitioner Family | DX: M54.42 Lumbago with sciatica, left side (principal); M54.41 Lumbago with sciatica, right side; G89.29 Other chronic pain; M54.16 Radiculopathy, lumbar region | CPT/HCPCS: 99214 ==

== ENCOUNTER → 2024-08-10 08:22 | Outpatient (BNVA) | payer MEDICARE, SELFPAY | PROVIDERS: PCP Family Medicine; Visit Provider Nurse Practitioner Family | DX: M79.18 Myalgia, other site (principal); M54.42 Lumbago with sciatica, left side; M54.41 Lumbago with sciatica, right side; G89.29 Other chronic pain; M54.16 Radiculopathy, lumbar region | CPT/HCPCS: 20553; 99214; J1010; J3490 ==

== ENCOUNTER → 2024-08-24 09:59 | Outpatient (BNVA) | payer MEDICARE, SELFPAY | PROVIDERS: PCP Family Medicine; Visit Provider Nurse Practitioner Family | DX: M54.16 Radiculopathy, lumbar region (principal); M16.0 Bilateral primary osteoarthritis of hip | CPT/HCPCS: 73522; 99214 ==

== ENCOUNTER 2024-09-04 11:25 | Outpatient (CLI) | payer MEDICARE, SELFPAY ==
--- NOTE | 2024-09-04 11:45 | MR_ITS ---
WS: [id number] MRI LUMBAR SPINE NONCONTRAST HISTORY: M54.16 - Radiculopathy, lumbar region, prior lumbar spine surgery. COMPARISON: Radiograph 06/15/2024 TECHNIQUE: Sagittal and axial multisequence imaging is submitted. Normal lumbar alignment with no compression fractures or marrow edema. Minimal disc base narrowing at L4-5. Posterior L4-5 fusion hardware. Conus terminates normally at L1-2 disc level. L1-L2: Normal. L2-L3: Mild ligamentum flavum and facet arthritis. Minimal LEFT foraminal stenosis. L3-L4: Mild annular disc bulging with severe ligamentum flavum and facet joint arthritis. Fluid in the facet joints. Facet joints are widened. Moderate to severe central, bilateral subarticular recess and foraminal stenosis. There is significant contact on both the L3 and L4 nerve roots. L4-L5: Patulous thecal sac. No central stenosis. No foraminal stenosis. Large posterior laminectomy defect. L5-S1: Mild annular disc bulging with bilateral facet joint arthritis and ligamentum flavum hypertrophy. Mild bilateral foraminal stenosis. Cortical cyst lower pole RIGHT kidney. MR/MR lumbar spine wo con* [id number] IMPRESSION: 1. Prior posterior lumbar fusion at L4-5. Posterior laminectomy defects. 2. L3-4: Moderate to severe central, bilateral subarticular recess and foramin al stenosis. There is significant narrowing of the thecal sac and contact on th e L3 and L4 nerve roots. 3. Mild bilateral foraminal stenosis at L5-S1. 4. Minimal LEFT foraminal stenosis at L2-3.
== END 2024-09-04 11:26 | disposition home or self-care (01) ==
LOC: RAD 11:26
PROVIDERS: PCP Family Medicine; Visit Provider Nurse Practitioner Family
DX: M54.16 Radiculopathy, lumbar region (principal); Z98.1 Arthrodesis status; M96.89 Other intraoperative and postprocedural complications and disorders of the musculoskeletal system; M48.061 Spinal stenosis, lumbar region without neurogenic claudication; R93.7 Abnormal findings on diagnostic imaging of other parts of musculoskeletal system; M48.07 Spinal stenosis, lumbosacral region; M24.28 Disorder of ligament, vertebrae; M47.896 Other spondylosis, lumbar region; M51.369 Other intervertebral disc degeneration, lumbar region without mention of lumbar back pain or lower extremity pain; M51.379 Other intervertebral disc degeneration, lumbosacral region without mention of lumbar back pain or lower extremity pain; M47.897 Other spondylosis, lumbosacral region; N28.1 Cyst of kidney, acquired
CPT/HCPCS: 72148

== ENCOUNTER → 2024-09-08 11:11 | Outpatient (BNVA) | payer MEDICARE, SELFPAY | PROVIDERS: PCP Family Medicine; Visit Provider Nurse Practitioner Family | DX: M54.16 Radiculopathy, lumbar region (principal); G89.29 Other chronic pain | CPT/HCPCS: 99213 ==

== ENCOUNTER → 2024-09-30 10:31 | Outpatient (BNVA) | payer MEDICARE, SELFPAY | PROVIDERS: PCP Family Medicine; Visit Provider Nurse Practitioner Family | DX: M54.16 Radiculopathy, lumbar region (principal); G89.29 Other chronic pain | CPT/HCPCS: 99214 ==

== ENCOUNTER → 2024-10-14 13:59 | Outpatient (BNVA) | payer MEDICARE, SELFPAY | PROVIDERS: PCP Family Medicine; Visit Provider Anesthesiology Pain Medicine | DX: M54.16 Radiculopathy, lumbar region (principal); M54.9 Dorsalgia, unspecified | CPT/HCPCS: 64483; 64484; J1100; J3490; J9999 ==

== ENCOUNTER → 2024-10-27 11:23 | Outpatient (BNVA) | payer MEDICARE, SELFPAY | PROVIDERS: PCP Family Medicine; Visit Provider Nurse Practitioner Family | DX: M54.16 Radiculopathy, lumbar region (principal); G89.29 Other chronic pain; M47.816 Spondylosis without myelopathy or radiculopathy, lumbar region | CPT/HCPCS: 99214 ==

== ENCOUNTER → 2024-12-04 09:03 | Outpatient (BNVA) | payer MEDICARE, SELFPAY | PROVIDERS: PCP Family Medicine; Visit Provider Family Medicine | DX: E55.9 Vitamin D deficiency, unspecified (principal); R73.9 Hyperglycemia, unspecified; I10 Essential (primary) hypertension; E78.5 Hyperlipidemia, unspecified; F31.62 Bipolar disorder, current episode mixed, moderate | CPT/HCPCS: 80053; 80061; 82306; 83036; 84443; 85025 ==